=== PATIENT | female | born 1995 | race Caucasian/White ===

== ENCOUNTER 2017-02-07 00:05 | Emergency (ER) | payer SELFPAY ==
[~2017-02-07] VITALS: Ht 154.9 cm; Wt 92.0 kg
[2017-02-07] MEDS ORDERED: TETANUS, DIPHTHERIA, PERTUSSIS VAC/PF 0.5ML (>7YR OLD) IM ONE (00:45)
[2017-02-07] MEDS ORDERED: BACITRACIN ZINC OINT UDPKT TOP ONE (00:45)
[2017-02-07] MEDS ORDERED: LIDOCAINE HCL/EPINEPHRINE 1%-EPI 1:100,000 30 ML VIAL INFIL ONE (00:45)
[2017-02-07] MEDS ORDERED: LIDOCAINE HCL 1%/EPI 1:200,000 30 ML VIAL MC NR (01:00)
[2017-02-07 01:55] VITALS: BP 120/68
== END 2017-02-07 02:08 | disposition home or self-care (01) ==
LOC: ER 00:29
DX: S81.811A Laceration without foreign body, right lower leg, initial encounter (principal); F12.10 Cannabis abuse, uncomplicated; W01.110A Fall on same level from slipping, tripping and stumbling with subsequent striking against sharp glass, initial encounter; Y93.89 Activity, other specified; Y92.018 Other place in single-family (private) house as the place of occurrence of the external cause
CPT/HCPCS: 12002; 73590; 90471; 90715; 99284; X7700; Z7610

== ENCOUNTER 2017-02-17 10:48 | Emergency (ER) | payer SELFPAY ==
[~2017-02-17] VITALS: Ht 154.9 cm; Wt 95.0 kg
[2017-02-17 11:04] VITALS: BP 112/65
[2017-02-17] MEDS ORDERED: BACITRACIN ZINC OINT UDPKT TOP ONE (11:15)
== END 2017-02-17 11:25 | disposition home or self-care (01) ==
LOC: ER 11:03
DX: Z48.02 Encounter for removal of sutures (principal); F12.10 Cannabis abuse, uncomplicated; X58.XXXD Exposure to other specified factors, subsequent encounter
CPT/HCPCS: 99283; Z7610